=== PATIENT | male | born 1960 | race African-American/Black ===

== ENCOUNTER 2017-11-18 03:14 | Emergency (ER) | payer MEDICARE, OTHER ==
[~2017-11-18] VITALS: Ht 182.9 cm; Wt 88.0 kg
[~2017-11-18 03:14] MED LIST: AMLODIPINE; FLOMAX; HYDROCHLOROTHIAZIDE
[2017-11-18 09:43] LABS: CLARITY URINE CLEAR (CLEAR); COLOR URINE YELLOW (YELLOW); KETONES URINE NEGATIVE (NEGATIVE); LEUKOCYTE ESTERASE URINE NEGATIVE (NEGATIVE); NITRITE URINE NEGATIVE (NEGATIVE); OCCULT BLOOD URINE NEGATIVE (NEGATIVE); PROTEIN URINE NEGATIVE (NEGATIVE); SPECIFIC GRAVITY URINE 1.018 (1.005-1.030)
[2017-11-18] MEDS ORDERED: KETOROLAC 60MG/2ML VIAL IM ONE (10:00)
[2017-11-18] MEDS ORDERED: TAMSULOSIN HCL 0.4MG SR CAPSULE PO ONE (11:45)
[2017-11-18 12:02] VITALS: BP 145/74
== END 2017-11-18 12:04 | disposition home or self-care (01) ==
LOC: ER 03:14
DX: N43.3 Hydrocele, unspecified (principal); I10 Essential (primary) hypertension; E11.9 Type 2 diabetes mellitus without complications; F17.200 Nicotine dependence, unspecified, uncomplicated
CPT/HCPCS: 76870; 81003; 82962; 93976; 96372; 99285; J1885

== ENCOUNTER 2019-04-16 11:58 | Emergency (ER) | payer MEDICARE, OTHER ==
[~2019-04-16] VITALS: Ht 182.9 cm; Wt 86.0 kg
[~2019-04-16 11:58] MED LIST changes: +ATENOLOL; +BENAZEPRIL
[2019-04-16] MEDS ORDERED: TETANUS, DIPHTHERIA, PERTUSSIS VAC/PF 0.5ML (>7YR OLD) IM ONE (13:30)
[2019-04-16 14:03] VITALS: BP 158/89
== END 2019-04-16 14:04 | disposition home or self-care (01) ==
LOC: ER 11:58
DX: S10.86XA Insect bite of other specified part of neck, initial encounter (principal); L03.221 Cellulitis of neck; W57.XXXA Bitten or stung by nonvenomous insect and other nonvenomous arthropods, initial encounter; Y93.89 Activity, other specified; Y92.89 Other specified places as the place of occurrence of the external cause; Z23 Encounter for immunization
CPT/HCPCS: 90471; 90715; 99283